=== PATIENT | female | born 1985 ===

== ENCOUNTER 2018-03-31 11:05 | Inpatient (IN) | payer OTHER ==
[~2018-03-31] VITALS: Ht 165.1 cm; Wt 82.6 kg
== END 2018-04-03 10:08 | DRG 775 ==
LOC: LDR 04-01 07:21 → SURG-SUITE 04-01 07:21 → LDR 04-01 11:05 → SURG-SUITE 04-01 15:02
PROC: 10E0XZZ Delivery of Products of Conception, External Approach (ICD-10-PCS; principal; 2018-04-01)
PROC: 4A1HXCZ Monitoring of Products of Conception, Cardiac Rate, External Approach (ICD-10-PCS; 2018-04-01)
DX: O80 Encounter for full-term uncomplicated delivery (principal); Z3A.38 38 weeks gestation of pregnancy; Z37.0 Single live birth